=== PATIENT | male | born 1965 | race Caucasian/White ===

== ENCOUNTER 2017-01-30 06:24 | Day surgery (SDC) | payer OTHER ==
[2017-01-30] MEDS ORDERED: Lactated Ringers 1,000 ML IV SCH (07:00)
[2017-01-30] MEDS ORDERED: fentaNYL 100 MCG/2 ML SDV ONE (07:13)
[2017-01-30] MEDS ORDERED: Midazolam 1 MG/ML 2 ML SDV ONE (07:13)
[2017-01-30] MEDS ORDERED: Propofol 200 MG/20 ML SDV ONE (07:13)
[2017-01-30 09:05] VITALS: BP 124/76
--- NOTE | 2017-01-31 07:28 | OR ---
DATE OF PROCEDURE: 01/30/2017 PREOPERATIVE DIAGNOSES: History of diverticular disease. Strong family history of colon cancer--mother of colon cancer. POSTOPERATIVE DIAGNOSES: History of diverticular disease. Strong family history of colon cancer--mother of colon cancer. Unremarkable colonoscopy. PROCEDURE: Colonoscopy to the cecum. ANESTHESIA: IV anesthesia with monitored anesthesia care. INDICATION: This 51-year-old white male is referred for a colonoscopy. He has a history of diverticular disease, having suffered a perforation with left colostomy and Gustavo pouch. This was subsequently taken down. Later, he developed additional diverticular disease and underwent a further left-sided resection. His last colonoscopic exam was done five years ago. His mother of colon cancer. I counseled him for the procedure including risks and alternatives, and gave his informed consent to proceed. DESCRIPTION OF PROCEDURE: The patient was placed in the left lateral decubitus position. IV anesthesia was administered by the Anesthesia Service. Time-out was held. A rectal exam was performed, which was unremarkable. The flexible video Olympus colonoscope was introduced through his anus, up his rectum, and out his colon all the way to the cecum. En route, the anastomosis looked fine and was widely patent. Once the cecum was reached, the scope was slowly withdrawn examining the mucosa throughout. No mucosal abnormalities were noted. The scope was retroflexed in the rectum with the distal rectum appearing unremarkable. The scope was straightened and removed. He tolerated the procedure well. Parker Mortensen MD /[id number] [email or web address]
== END 2017-01-30 09:06 | disposition home or self-care (01) ==
LOC: JP.SDS 06:24
PROVIDERS: ATTEND Surgery
DX: K57.90 Diverticulosis of intestine, part unspecified, without perforation or abscess without bleeding (principal); Z80.0 Family history of malignant neoplasm of digestive organs; Z93.3 Colostomy status; Z91.048 Other nonmedicinal substance allergy status
CPT/HCPCS: 45378; J2250; J2704; J3010; J7120

== ENCOUNTER 2017-09-29 15:55 | Emergency (ER) | payer OTHER ==
[2017-09-29] MEDS ORDERED: Sodium Chloride 0.9% 10 ML Syringe FLUSH PRN (16:30)
[2017-09-29] MEDS ORDERED: Ketorolac 30 MG/ML SDV IVPUSH ONE (16:30)
--- NOTE | 2017-09-29 17:00 | EDM.PDOC ---
ED HPI GENERAL MEDICAL PROBLEM - General Chief Complaint: Fever Stated Complaint: SHIVERS/HOT FLASHES Time Seen by Provider: 09/29/17 16:20 Source of Information: Reports: Patient, Family History Limitations: Reports: No Limitations - History of Present Illness INITIAL COMMENTS - FREE TEXT/NARRATIVE: 52-year-old male who was had a cough for the past few weeks was at a local theater when he suddenly spiked a fever, developed rigors and shaking chills and a headache. His cough seems to be somewhat worse. No nausea or vomiting. Denies chest pain. Onset: Sudden Severity: Moderate Associated Symptoms: Reports: Cough, Fever/Chills, Headaches, Malaise. Denies: Confusion Generalized Pain Score (Numeric/FACES): 8 - Related Data Allergies Allergy/AdvReac Type Severity Reaction Status Date / Time cat dander Allergy Hives Verified 09/29/17 16:14 pollen extracts Allergy Cannot Verified 09/29/17 16:14 Remember Home Meds: Home Meds *Saw [place] 1,200 mg PO DAILY 02/09/16 [History] Aspirin [Ecotrin] 325 mg PO DAILY 02/09/16 [History] Cholecalciferol (Vitamin D3) [Vitamin D3] 1,000 units PO DAILY 02/09/16 [History ] L.acidoph,Paracasei, B.lactis [Probiotic] 1 each PO DAILY 02/09/16 [History] Multivitamin/Iron/Folic Acid [Centrum Complete Multivit] 1 tab PO DAILY [History] Past Medical History HEENT History: Reports: Allergic Rhinitis, Impaired Vision Other HEENT History: glasses Cardiovascular History: Reports: Afib Other Cardiovascular History: ablation Respiratory History: Reports: Sleep Apnea Gastrointestinal History: Reports: Bowel Obstruction, Diverticulosis, Other ( See Below) Other Gastrointestinal History: ruptured colon Genitourinary History: Reports: Renal Calculus Musculoskeletal History: Reports: Back Pain, Chronic, Fracture Neurological History: Reports: None Psychiatric History: Reports: None Endocrine/Metabolic History: Reports: Obesity/BMI 30+ Hematologic History: Reports: None Oncologic (Cancer) History: Reports: None Dermatologic History: Reports: None - Infectious Disease History Infectious Disease History: Reports: Mumps - Past Surgical History Cardiovascular Surgical History: Reports: Other (See Below) Other Cardiovascular Surgeries/Procedures: ablation GI Surgical History: Reports: Colonoscopy Other GI Surgeries/Procedures: colectomy Endocrine Surgical History: Reports: None Neurological Surgical History: Reports: C-Spine, Lumbar Spine Dermatological Surgical History: Reports: None Social & Family History - Family History Family Medical History: Noncontributory Cardiac: Reports: CAD Respiratory: Reports: None Oncologic: Reports: Colon, Lymphoma - Tobacco Use Smoking Status *Q: Never Smoker Years of Tobacco use: 11 Packs/Tins Daily: 0 Used Tobacco, but Quit: Yes Month Tobacco Last Used: 0 Second Hand Smoke Exposure: No - Caffeine Use Caffeine Use: Reports: Coffee - Alcohol Use Days Per Week of Alcohol Use: 1 Number of Drinks Per Day: 0 Total Drinks Per Week: 0 - Recreational Drug Use Recreational Drug Use: No ED ROS GENERAL - Review of Systems Review Of Systems: See Below Constitutional: Reports: Fever, Chills, Malaise HEENT: Denies: Throat Pain Respiratory: Reports: Cough. Denies: Shortness of Breath Cardiovascular: Denies: Chest Pain GI/Abdominal: Denies: Abdominal Pain, Nausea, Vomiting : Reports: No Symptoms Musculoskeletal: Reports: Muscle Pain (Aching all over) Skin: Denies: Rash Neurological: Reports: Headache. Denies: Confusion, Dizziness ED EXAM, GENERAL - Physical Exam Exam: See Below Exam Limited By: No Limitations General Appearance: Alert, Mild Distress (Patient is very uncomfortable with shaking rigors and fever) Respiratory/Chest: Wheezing (A few scattered expiratory wheezes are heard) Cardiovascular: Regular Rate, Rhythm GI/Abdominal: Non-Tender Neurological: Alert, Oriented Psychiatric: Anxious Skin Exam: Warm, Dry Course - Vital Signs Last Recorded V/S: Last Vital Signs Temp 101.1 F H 09/29/17 17:56 Pulse 97 09/29/17 17:56 Resp 18 09/29/17 17:56 BP 156/84 H 09/29/17 17:56 Pulse Ox 95 09/29/17 17:56 - Orders/Labs/Meds Orders: Active Orders 24 hr Category Date Time Status Chest 2V [CR] Routine Exams 09/29/17 17:10 Taken CULTURE BLOOD [BC] Urgent Lab 09/29/17 17:15 Received Blood Culture x2 Reflex Set [OM.PC] Urgent Oth 09/29/17 17:09 Ordered Saline Lock Insert [OM.PC] Routine Oth 09/29/17 16:30 Ordered Labs: Laboratory Tests 09/29/17 09/29/17 Range/Units 17:15 17:15 WBC 7.8 (4.5-11.0) K/uL RBC 4.53 (4.30-5.90) M/uL Hgb 13.4 (12.0-15.0) g/dL Hct 40.2 (40.0-54.0) % MCV 89 (80-98) fL MCH 30 (27-31) pg MCHC 33 (32-36) % Plt Count 208 (150-400) K/uL Neut % (Auto) 78 H (36-66) % Lymph % (Auto) 6 L (24-44) % [place] % (Auto) 13 H (2-6) % Eos % (Auto) 3 (2-4) % Baso % (Auto) 0 (0-1) % Sodium 142 (140-148) mmol/L Potassium 4.0 (3.6-5.2) mmol/L Chloride 105 (100-108) mmol/L Carbon Dioxide 26 (21-32) mmol/L Anion Gap 11.0 (5.0-14.0) mmol/L BUN 16 (7-18) mg/dL Creatinine 1.0 (0.8-1.3) mg/dL Est Cr Clr Drug Dosing 102.75 mL/min Estimated GFR (MDRD) > 60 (>60) Glucose 87 (74-106) mg/dL Calcium 8.7 (8.5-10.1) mg/dL Total Bilirubin 0.9 (0.2-1.0) mg/dL AST 39 H (15-37) U/L ALT 61 (12-78) U/L Alkaline Phosphatase 48 (46-116) U/L Total Protein 6.9 (6.4-8.2) g/dL Albumin 3.4 (3.4-5.0) g/dL Globulin 3.5 (2.3-3.5) g/dL Albumin/Globulin Ratio 1.0 L (1.2-2.2) Meds: Medications Discontinued Medications Generic Name Dose Route Start Last Admin Trade Name Freq PRN Reason Stop Dose Admin Hydromorphone HCl 1 mg 09/29/17 17:08 09/29/17 17:16 Dilaudid IVPUSH 09/29/17 17:09 1 mg ONETIME ONE Administration Ketorolac Tromethamine 30 mg 09/29/17 16:30 09/29/17 16:40 Toradol IVPUSH 09/29/17 16:31 30 mg ONETIME ONE Administration Sodium Chloride 10 ml 09/29/17 16:30 09/29/17 16:41 Saline Flush FLUSH 10 ml ASDIRECTED PRN Administration Keep Vein Open - Re-Assessments/Exams Free Text/Narrative Re-Assessment/Exam: 09/29/17 16:59 A saline lock was placed and the patient was given 30 mg of Toradol IV. Influenza antigens were obtained. 09/29/17 18:02 Influenza antigens came back negative. The 30 mg of Toradol did not help his headache much so he was given 1 mg of Dilaudid IV before being sent for his chest x-ray. A CBC blood cultures and his CMP were drawn. The patient returned from the chest x-ray feeling markedly better, his headache was gone. His eyes were still hurting but he was feeling much better. His chest x-ray was normal, CBC was normal, CMP was normal. I discussed with the patient and his that I was very surprised that his influenza was not positive. Departure - Departure Time of Disposition: 19:10 Disposition: Home, Self-Care 01 Condition: Good Clinical Impression: Viral bronchitis - Discharge Information Instructions: Acute Bronchitis Referrals: Chely Romo MD [Primary Care Provider] - Forms: ED Department Discharge Care Plan Goals: Take Tamiflu twice daily for 5 days as prescribed. A regular dose of ibuprofen or naproxen would be beneficial, and add stronger pain medication if needed. You will be contacted if any significant findings are found on the blood culture is the next 24-48 hours. He can always return sooner if worsening such as difficulty breathing or increased pain. - My Orders Last 24 Hours: My Active Orders 09/29/17 16:30 Saline Lock Insert [OM.PC] Routine 09/29/17 17:09 Blood Culture x2 Reflex Set [OM.PC] Urgent 09/29/17 17:10 Chest 2V [CR] Routine 09/29/17 17:15 CULTURE BLOOD [BC] Urgent - Assessment/Plan Last 24 Hours: My Active Orders 09/29/17 16:30 Saline Lock Insert [OM.PC] Routine 09/29/17 17:09 Blood Culture x2 Reflex Set [OM.PC] Urgent 09/29/17 17:10 Chest 2V [CR] Routine 09/29/17 17:15 CULTURE BLOOD [BC] Urgent
[2017-09-29] MEDS ORDERED: HYDROmorphone 1 MG/ML Syringe IVPUSH ONE (17:08)
[2017-09-29 17:58] VITALS: BP 156/84
--- NOTE | 2017-09-30 10:19 | CR ---
Chest 2V HISTORY: Dyspnea. COMPARISON: 02/09/2016. FINDINGS: Cardiac size and pulmonary vessels normal. There are no infiltrates or effusions. No pneumo thorax. Prior cervical fusion. IMPRESSION: No acute pulmonary disease.
== END 2017-09-29 19:11 | disposition home or self-care (01) ==
LOC: JP.ED 15:55
DX: J20.8 Acute bronchitis due to other specified organisms (principal); B97.89 Other viral agents as the cause of diseases classified elsewhere; Z79.899 Other long term (current) drug therapy; Z91.09 Other allergy status, other than to drugs and biological substances; Z87.891 Personal history of nicotine dependence
CPT/HCPCS: 36415; 71046; 80053; 85025; 87040; 87804; 96374; 96375; 99284; J1170; J1885; J7050

== ENCOUNTER 2018-01-17 10:11 | Emergency (ER) | payer OTHER ==
[2018-01-17 10:29] VITALS: BP 174/105
--- NOTE | 2018-01-17 11:21 | EDM.PDOC ---
ED HPI GENERAL MEDICAL PROBLEM - General Chief Complaint: Syncope Stated Complaint: HIGH BP / DIZZY Time Seen by Provider: 01/17/18 10:59 Source of Information: Reports: Patient, Provider, RN Notes Reviewed History Limitations: Reports: No Limitations - History of Present Illness INITIAL COMMENTS - FREE TEXT/NARRATIVE: 52-year-old gentleman presents emergency department today for complaint of new onset dizziness and elevated blood pressure, he was initially evaluated in urgent care a did receive a call from Ms Ozuna. States that he presented for evaluation of dizziness in the clinic prior to her ordering lab work he had a syncopal event while she was out of the room and he admits to this while he bent over and was fixing his pant leg. He felt his head shakeing he did not feel he hit the ground and he was aware of his surroundings the whole time lab staff worker is concerned that he was having a seizure, therefore he was sent to the emergency department for further evaluation. At this time his dizziness has resolved however he can reintroduce the dizziness with head turning, he describes his dizziness as room spinning - Related Data Allergies Allergy/AdvReac Type Severity Reaction Status Date / Time cat dander Allergy Hives Verified 09/29/17 16:14 pollen extracts Allergy Cannot Verified 09/29/17 16:14 Remember Home Meds: Home Meds *Saw [place] 1,200 mg PO DAILY 02/09/16 [History] Aspirin [Ecotrin] 325 mg PO DAILY 02/09/16 [History] Cholecalciferol (Vitamin D3) [Vitamin D3] 1,000 units PO DAILY 02/09/16 [History ] L.acidoph,Paracasei, B.lactis [Probiotic] 1 each PO DAILY 02/09/16 [History] Multivitamin/Iron/Folic Acid [Centrum Complete Multivit] 1 tab PO DAILY [History] Melatonin 01/17/18 [History] Past Medical History HEENT History: Reports: Allergic Rhinitis, Impaired Vision Other HEENT History: glasses Cardiovascular History: Reports: Arrhythmia (SVT) Other Cardiovascular History: ablation Respiratory History: Reports: Sleep Apnea Gastrointestinal History: Reports: Bowel Obstruction, Diverticulosis, Other ( See Below) Other Gastrointestinal History: ruptured colon Genitourinary History: Reports: Renal Calculus Musculoskeletal History: Reports: Back Pain, Chronic, Fracture Endocrine/Metabolic History: Reports: Obesity/BMI 30+ Dermatologic History: Reports: None - Infectious Disease History Infectious Disease History: Reports: Mumps - Past Surgical History Cardiovascular Surgical History: Reports: Other (See Below) Other Cardiovascular Surgeries/Procedures: ablation GI Surgical History: Reports: Colonoscopy Other GI Surgeries/Procedures: colectomy Endocrine Surgical History: Reports: None Neurological Surgical History: Reports: C-Spine, Lumbar Spine Dermatological Surgical History: Reports: None Social & Family History - Family History Family Medical History: Noncontributory Cardiac: Reports: CAD Respiratory: Reports: None Oncologic: Reports: Colon, Lymphoma - Tobacco Use Smoking Status *Q: Never Smoker Years of Tobacco use: 11 Packs/Tins Daily: 0 Used Tobacco, but Quit: Yes Month/Year Tobacco Last Used: 0 Second Hand Smoke Exposure: No - Caffeine Use Caffeine Use: Reports: Coffee - Alcohol Use Days Per Week of Alcohol Use: 1 Number of Drinks Per Day: 0 Total Drinks Per Week: 0 - Recreational Drug Use Recreational Drug Use: No ED ROS GENERAL - Review of Systems Review Of Systems: See Below Constitutional: Reports: No Symptoms HEENT: Reports: No Symptoms Respiratory: Reports: No Symptoms Cardiovascular: Reports: Syncope GI/Abdominal: Reports: Nausea : Reports: No Symptoms Musculoskeletal: Reports: No Symptoms Skin: Reports: No Symptoms Neurological: Reports: Dizziness ED EXAM, NEURO - Physical Exam Exam: See Below Text/Narrative:: General: Male, not in any distress, alert and oriented x3 HEENT: head is atraumatic normocephalic, eyes pupils equal round reactive to light, sclera clear no conjunctivitis appreciated. Ears tympanic membranes clear and cunningham landmarks and light reflex are present bilaterally canals are clear. Nose no septal deviation, nares are clear, no blood present. Mouth mucosa is moist and pink no erythema or exudate noted in soft palate, tongue is midline uvula is midline, dentition is intact. Neck: Supple no thyromegaly no tracheal deviation. Nodes: Cervical nodes subclavicular nodes nontender no palpable lymphadenopathy noted. Lungs: clear to auscultation bilaterally with symmetrical respirations, no adventitious noise appreciated. CV: Regular rate and rhythm S1 and S2 appreciated no murmurs rubs or gallops noted. Abdomen: Soft, nontender, no palpable masses or organomegaly appreciated, no distention no guarding bowel sounds are present, midline laparotomy scar is clean dry and intact. Neuro: Cranial nerves II through XII grossly intact, power is 5 out 5 in upper and lower extremities, no dysdiadochokinesis no difficulty with rapid alternating movements can do [id number] without difficulty Romberg is negative , has adequate gait no cerebellar dysfunction no focal neurologic deficit Hints exam does reveal dizziness induced with turning to the midline both sides no nystagmus noted, cover-uncover test is normal Skin: Warm and dry, intact Extremities: No lower extremity edema appreciated, pedal pulse is +2. Course - Vital Signs Last Recorded V/S: Last Vital Signs Temp 96.9 F 01/17/18 10:20 Pulse 72 01/17/18 10:27 Resp 16 01/17/18 10:27 BP 174/105 H 01/17/18 10:27 Pulse Ox 98 01/17/18 10:27 - Orders/Labs/Meds Orders: Active Orders 24 hr Category Date Time Status UA W/MICROSCOPIC [URIN] Urgent Lab 01/17/18 11:25 Ordered Labs: Laboratory Tests 01/17/18 01/17/18 01/17/18 Range/Units 11:25 11:25 11:25 WBC 6.8 (4.5-11.0) K/uL RBC 4.85 (4.30-5.90) M/uL Hgb 14.6 (12.0-15.0) g/dL Hct 43.0 (40.0-54.0) % MCV 89 (80-98) fL MCH 30 (27-31) pg MCHC 34 (32-36) % Plt Count 230 (150-400) K/uL Neut % (Auto) 58 (36-66) % Lymph % (Auto) 26 (24-44) % [place] % (Auto) 11 H (2-6) % Eos % (Auto) 5 H (2-4) % Baso % (Auto) 1 (0-1) % Sodium 142 (140-148) mmol/L Potassium 4.8 (3.6-5.2) mmol/L Chloride 104 (100-108) mmol/L Carbon Dioxide 29 (21-32) mmol/L Anion Gap 9.0 (5.0-14.0) mmol/L BUN 13 (7-18) mg/dL Creatinine 1.0 (0.8-1.3) mg/dL Est Cr Clr Drug Dosing 102.75 mL/min Estimated GFR (MDRD) > 60 (>60) Glucose 96 (74-106) mg/dL Calcium 8.9 (8.5-10.1) mg/dL Total Bilirubin 0.7 (0.2-1.0) mg/dL AST 51 H (15-37) U/L ALT 82 H (12-78) U/L Alkaline Phosphatase 55 (46-116) U/L Total Protein 7.7 (6.4-8.2) g/dL Albumin 3.7 (3.4-5.0) g/dL Globulin 4.0 H (2.3-3.5) g/dL Albumin/Globulin Ratio 0.9 L (1.2-2.2) Urine Color Yellow Urine Appearance Clear Urine pH 7.0 (4.5-8.0) Ur Specific [place] 1.010 (1.008-1.030) Urine Protein Negative (NEGATIVE) mg/dL Urine Glucose (UA) Normal (NEGATIVE) mg/dL Urine Ketones Negative (NEGATIVE) mg/dL Urine Occult Blood Negative (NEGATIVE) Urine Nitrite Negative (NEGAITVE) Urine Bilirubin Negative (NEGATIVE) Urine Urobilinogen Normal (NORMAL) mg/dL Ur Leukocyte Esterase Negative (NEGATIVE) Urine RBC Not seen (0-5) Urine WBC Not seen (0-5) Ur Epithelial Cells Not seen Amorphous Sediment Rare Urine Bacteria Not seen Urine Mucus Not seen Departure - Departure Time of Disposition: 12:20 Disposition: Home, Self-Care 01 Condition: Good Clinical Impression: Syncope Qualifiers: Syncope type: vasovagal syncope Qualified Code(s): R55 - Syncope and collapse - Discharge Information Referrals: PCP,None [Primary Care Provider] - Forms: ED Department Discharge Additional Instructions: Please followup with your primary care provider in 5-7 days if not better, please call return to the emergency department with worsening of symptoms. - My Orders Last 24 Hours: My Active Orders 01/17/18 11:25 UA W/MICROSCOPIC [URIN] Urgent - Assessment/Plan Last 24 Hours: My Active Orders 01/17/18 11:25 UA W/MICROSCOPIC [URIN] Urgent Assessment:: Assessment Acuity = acute Site and laterality = syncopal event Etiology = unclear etiology Manifestations = none Location of injury = Home Lab values = CBC, CMP shows mildly elevated liver enzymes, EKG done in the clinic shows no acute process CT scan of the head also no acute process Plan He remained asymptomatic while in the emergency department no treatment was provided his blood pressure did return to normal region systolics of 130 plan to discharge home follow-up primary care 3-5 days no improvement This note was dictated using [employer] voice recognition software please call with any questions on syntax or nicholas.
--- NOTE | 2018-01-17 11:42 | CT ---
Head wo Cont HISTORY: New-onset syncope and hypertension TECHNIQUE: Spiral noncontrast CT scan of the brain was obtained along with high-resolution bone windo w reconstructions. Auto dosage and iterative reconstruction techniques were employed. COMPARISON: 09/17/2012 FINDINGS: No acute intracranial hemorrhage or infarct is identified. There is no mass lesion, mass effect, midl ine shift, or ventricular abnormality. No abnormal extra-axial fluid collections are seen. Visualized paranasal sinuses and mastoid air cells are clear. Bone windows show no evidence for skull fracture. IMPRESSION: No hemorrhage, infarct, or other acute intracranial is abnormality identified. No significant interva l change compared with 09/17/2012. Findings were called to the Emergency Department at 1138 hours.
== END 2018-01-17 12:27 | disposition home or self-care (01) ==
LOC: JP.ED 10:11
DX: R55 Syncope and collapse (principal); Z91.048 Other nonmedicinal substance allergy status; Z79.899 Other long term (current) drug therapy; Z79.82 Long term (current) use of aspirin; Z87.891 Personal history of nicotine dependence
CPT/HCPCS: 36415; 70450; 70450-26; 80053; 81001; 85025; 99284-25

== ENCOUNTER 2018-03-29 10:18 | Emergency (ER) | payer OTHER ==
[2018-03-29 10:51] VITALS: BP 135/88
[2018-03-29] MEDS ORDERED: Ketorolac 30 MG/ML SDV IM ONE (10:57)
--- NOTE | 2018-03-29 11:02 | EDM.PDOC ---
ED HPI GENERAL MEDICAL PROBLEM - General Chief Complaint: Upper Extremity Injury/Pain Stated Complaint: HURT RT HAND & RT KNEE Time Seen by Provider: 03/29/18 10:41 Source of Information: Reports: Patient, Family, RN Notes Reviewed History Limitations: Reports: No Limitations - History of Present Illness INITIAL COMMENTS - FREE TEXT/NARRATIVE: 52-year-old gentleman presents to the emergency department today following a fall on outstretched hand, he was running a race earlier today he fell on his right hand he believes his wrist was close to the time of fall he is experiencing pain over digits 34 and 5, no wrist pain he also has an abrasion on his right knee but he was able to complete the race - Related Data Allergies Allergy/AdvReac Type Severity Reaction Status Date / Time cat dander Allergy Hives Verified 03/29/18 10:36 pollen extracts Allergy Cannot Verified 03/29/18 10:36 Remember Home Meds: Home Meds *Saw [place] 1,200 mg PO DAILY 02/09/16 [History] Aspirin [Ecotrin] 325 mg PO DAILY 02/09/16 [History] Cholecalciferol (Vitamin D3) [Vitamin D3] 1,000 units PO DAILY 02/09/16 [History ] Multivitamin/Iron/Folic Acid [Centrum Complete Multivit] 1 tab PO DAILY [History] Past Medical History HEENT History: Reports: Allergic Rhinitis, Impaired Vision Other HEENT History: glasses Cardiovascular History: Reports: Arrhythmia Other Cardiovascular History: ablation Respiratory History: Reports: Sleep Apnea Other Respiratory History: cpap Gastrointestinal History: Reports: Bowel Obstruction, Diverticulosis, Other ( See Below) Other Gastrointestinal History: ruptured colon Genitourinary History: Reports: Renal Calculus Musculoskeletal History: Reports: Back Pain, Chronic, Fracture Other Musculoskeletal History: right wrist fracture with repair 2016 Endocrine/Metabolic History: Reports: Obesity/BMI 30+ Dermatologic History: Reports: None - Infectious Disease History Infectious Disease History: Reports: Mumps - Past Surgical History Cardiovascular Surgical History: Reports: Other (See Below) Other Cardiovascular Surgeries/Procedures: ablation GI Surgical History: Reports: Colonoscopy Other GI Surgeries/Procedures: colectomy Male Surgical History: Reports: Renal Calculus Endocrine Surgical History: Reports: None Neurological Surgical History: Reports: C-Spine, Lumbar Spine Dermatological Surgical History: Reports: None Social & Family History - Family History Family Medical History: Noncontributory Cardiac: Reports: CAD Respiratory: Reports: None Oncologic: Reports: Colon, Lymphoma - Tobacco Use Smoking Status *Q: Former Smoker Years of Tobacco use: 10 Packs/Tins Daily: 0.5 Used Tobacco, but Quit: Yes Month/Year Tobacco Last Used: 2007 - Caffeine Use Caffeine Use: Reports: Coffee, Energy Drinks, Soda - Recreational Drug Use Recreational Drug Use: No Review of Systems - Review of Systems Review Of Systems: See Below Musculoskeletal: Reports: Hand Pain Skin: Reports: Wound ED EXAM, GENERAL - Physical Exam Exam: See Below Free Text/Narrative:: Examination right hand he has full range of motion the wrist without difficulty radial pulse is +2 he does have an abrasion over digits 4 and 5 metacarpal area he has some swelling over that area as well it is tender to the touch he has limited range of motion of all digits secondary to pain Exam Limited By: No Limitations General Appearance: Alert, WD/WN, No Apparent Distress Extremities: Other (Abrasion over left knee no pain with flexion extension is able to ambulate) Course - Vital Signs Last Recorded V/S: Last Vital Signs Temp 97.9 F 03/29/18 10:50 Pulse 84 03/29/18 10:50 Resp 16 03/29/18 10:50 BP 135/88 03/29/18 10:50 Pulse Ox 98 03/29/18 10:50 - Orders/Labs/Meds Orders: Active Orders 24 hr Category Date Time Status Hand Comp Min 3V Rt [CR] Stat Exams 03/29/18 10:57 Taken Bacitracin [Bacitracin Oint 1 GM] Med 03/29/18 11:30 Once 1 dose TOP ONETIME ONE Meds: Medications Discontinued Medications Generic Name Dose Route Start Last Admin Trade Name Freq PRN Reason Stop Dose Admin Ketorolac Tromethamine 30 mg 03/29/18 10:57 03/29/18 11:07 Toradol IM 03/29/18 10:58 30 mg ONETIME ONE Administration Departure - Departure Time of Disposition: 11:34 Disposition: Home, Self-Care 01 Condition: Good Clinical Impression: Contusion of right hand Qualifiers: Encounter type: initial encounter Qualified Code(s): S60.221A - Contusion of right hand, initial encounter - Discharge Information Referrals: Chely Romo MD [Primary Care Provider] - Forms: ED Department Discharge Additional Instructions: Use ibuprofen for baseline pain control, use hydrocodone for breakthrough pain please follow-up with your primary care provider on Saturday if no improvement we will contact you if radiology does find a fracture - My Orders Last 24 Hours: My Active Orders 03/29/18 10:57 Hand Comp Min 3V Rt [CR] Stat 03/29/18 11:30 Bacitracin [Bacitracin Oint 1 GM] 1 dose TOP ONETIME ONE - Assessment/Plan Last 24 Hours: My Active Orders 03/29/18 10:57 Hand Comp Min 3V Rt [CR] Stat 03/29/18 11:30 Bacitracin [Bacitracin Oint 1 GM] 1 dose TOP ONETIME ONE Plan: Assessment Acuity = acute Site and laterality = contusion right hand Etiology = secondary to a fall Manifestations = bruising, edema Location of injury = Home Lab values = hand x-ray I did review films myself I cannot appreciate any acute process, the official read from radiology is pending Plan Remy wrap as needed for comfort hydrocodone for pain control 5/325 one tab by mouth every 6 hours when necessary total #6 follow-up with primary care on Saturday if no improvement will contact if the radiology read differs This note was dictated using Conject voice recognition software please call with any questions on syntax or grammar.
[2018-03-29] MEDS ORDERED: Bacitracin Oint 1 GM U/D Packet TOP ONE (11:30)
--- NOTE | 2018-03-31 08:47 | CR ---
Hand Comp Min 3V Rt CLINICAL HISTORY: Pain, fall FINDINGS: There is no acute fracture or dislocation of the hand. There has been the previous fracture and fixation of the fifth metacarpal. There is a small ossification of the base of the fourth proxim al phalanx. This may be related to old injury. Acute fracture is unlikely. Impression: Previous fifth metacarpal fracture with fixation Small irregular ossific density off the base of the fourth proximal phalanx. This may be related to o ld injury. Clinical correlation is necessary.
== END 2018-03-29 11:45 | disposition home or self-care (01) ==
LOC: JP.ED 10:18
DX: S60.221A Contusion of right hand, initial encounter (principal); S80.212A Abrasion, left knee, initial encounter; E66.9 Obesity, unspecified; W19.XXXA Unspecified fall, initial encounter; Y93.02 Activity, running; Z79.82 Long term (current) use of aspirin; Z91.048 Other nonmedicinal substance allergy status; Z87.891 Personal history of nicotine dependence
CPT/HCPCS: 73130; 96372; 99283; 99284; J1885

== ENCOUNTER 2021-09-24 13:15 | Emergency (ER) | payer OTHER ==
--- NOTE | 2021-09-24 13:25 | EDM.PDOC ---
ED HPI GENERAL MEDICAL PROBLEM - General Chief Complaint: Cardiovascular Problem Stated Complaint: CHEST PAIN, SOB Time Seen by Provider: 09/24/21 13:24 Source of Information: Reports: Patient, Old Records History Limitations: Reports: No Limitations - History of Present Illness INITIAL COMMENTS - FREE TEXT/NARRATIVE: 56 yo male with known HTN and a FHx of CAD presents with central chest pain that he has been having on and off for a couple weeks, but which returned about 10 am today when he was doing housework and has not gone away. He feels mild SOB. No radiation or nausea or diaphoresis. He has tried amlopine and later losartan and more recently metoprolol succinate for his HTN. His older brother has CAD. He was on ASA in the past, but not recently. Onset: Today, Sudden Onset Date: 09/24/21 Onset Time: 10:00 Duration: Hour(s):, Constant Location: Reports: Chest Quality: Reports: Pressure Severity: Mild Improves with: Reports: None Worsens with: Reports: Other (? light exertion) Context: Reports: Other (See HPI) Associated Symptoms: Reports: Chest Pain, Shortness of Breath (mild). Denies: Cough, Diaphoresis, Nausea/Vomiting Treatments ALMOND SORTER: Reports: Other (see below) (none) Chest Pain Score (Numeric/FACES): 3 - Related Data Allergies Allergy/AdvReac Type Severity Reaction Status Date / Time cat dander Allergy Hives Verified 09/24/21 13:31 pollen extracts Allergy Other Verified 09/24/21 13:31 Home Meds: Home Meds Multivitamin/Iron/Folic Acid [Centrum Complete Multivit] 1 tab PO DAILY 07/20/16 [History] Ibuprofen 400 mg PO ASDIRECTED PRN 05/28/19 [History] Cholecalciferol (Vitamin D3) [Vitamin D3] 2,000 unit PO DAILY 06/01/19 [History] Metoprolol Succinate 25 mg PO DAILY 09/24/21 [History] Metoprolol Succinate 100 mg PO DAILY #30 tab.er.24h 09/24/21 [Rx] metFORMIN HCl [Metformin HCl ER] 100 mg PO BID #120 tab.er.24h 09/24/21 [Rx] Past Medical History HEENT History: Reports: Allergic Rhinitis Cardiovascular History: Reports: Afib, Arrhythmia, High Cholesterol Other Cardiovascular History: ABLATION, CARDIAC DYSRHYTHMIA, SVT Respiratory History: Reports: Sleep Apnea Other Respiratory History: cpap Gastrointestinal History: Reports: Bowel Obstruction, Diverticulosis, Other (See Below) Other Gastrointestinal History: ruptured colon, DIVERTICULAR DISEASE OF THE LARGE INTESTINE Genitourinary History: Reports: Renal Calculus Musculoskeletal History: Reports: Back Pain, Chronic, Fracture, Gout Other Musculoskeletal History: right wrist fracture with repair 2016, CERVICAL DISC DIPLACEMENT, RADICULOPATHY Neurological History: Reports: None Psychiatric History: Reports: None Endocrine/Metabolic History: Reports: Obesity/BMI 30+ Hematologic History: Reports: None Oncologic (Cancer) History: Reports: None Dermatologic History: Reports: None - Infectious Disease History Infectious Disease History: Reports: Mumps - Past Surgical History HEENT Surgical History: Reports: None Cardiovascular Surgical History: Reports: Other (See Below) Other Cardiovascular Surgeries/Procedures: ablation Respiratory Surgical History: Reports: None GI Surgical History: Reports: Colon, Colonoscopy Other GI Surgeries/Procedures: colectomy Male Surgical History: Reports: Renal Calculus Endocrine Surgical History: Reports: None Neurological Surgical History: Reports: C-Spine, Lumbar Spine, Spinal Fusion Other Neurological Surgeries/Procedures: Cage between L-4 & L-5 on 02/06/2016 Musculoskeletal Surgical History: Reports: Shoulder Surgery, Other (See Below) Other Musculoskeletal Surgeries/Procedures:: discectomy with fusion NECK SURGERY IN 2014 AND BACK SURGERY 01/2016, right hand surgery with plate Dermatological Surgical History: Reports: None Social & Family History - Family History Family Medical History: No Pertinent Family History Cardiac: Reports: CAD Respiratory: Reports: None Oncologic: Reports: Colon, Lymphoma - Caffeine Use Caffeine Use: Reports: Coffee ED ROS GENERAL - Review of Systems Review Of Systems: See Below Constitutional: Reports: No Symptoms HEENT: Reports: No Symptoms Respiratory: Reports: Shortness of Breath Cardiovascular: Reports: Chest Pain Endocrine: Reports: No Symptoms GI/Abdominal: Reports: No Symptoms. Denies: Nausea : Reports: No Symptoms Musculoskeletal: Reports: No Symptoms Skin: Reports: No Symptoms Neurological: Reports: No Symptoms ED EXAM, GENERAL - Physical Exam Exam: See Below Exam Limited By: No Limitations General Appearance: Alert, WD/WN, No Apparent Distress Eye Exam: Bilateral Eye: Normal Inspection Ears: Normal External Exam, Normal Canal, Hearing Grossly Normal Ear Exam: Bilateral Ear: Auricle Normal, Canal Normal Nose: Normal Inspection, No Blood Throat/Mouth: Normal Inspection, Normal Lips, Normal Oropharynx, Normal Voice, No Airway Compromise Head: Atraumatic, Normocephalic Neck: Normal Inspection Respiratory/Chest: No Respiratory Distress, Lungs Clear, Normal Breath Sounds, No Accessory Muscle Use, Chest Non-Tender Cardiovascular: Regular Rate, Rhythm, No Edema GI/Abdominal: Normal Bowel Sounds, Soft, Non-Tender, No Distention Back Exam: Normal Inspection. No: CVA Tenderness (R), CVA Tenderness (L) Extremities: Normal Inspection, Normal Range of Motion, Non-Tender, No Pedal Edema Neurological: Alert, Oriented, CN II-XII Intact, Normal Cognition, No Motor/Sensory Deficits Psychiatric: Normal Affect, Normal Mood Skin Exam: Warm, Dry, Intact, Normal Color, No Rash #1 Interpretation EKG Date: 09/24/21 Time: 13:25 Rhythm: NSR Rate (Beats/Min): 82 [place]: LAD-Left [place] Deviation P-Wave: Present QRS: Normal ST-T: Normal QT: Normal Comparison: NA - No Prior EKG Course - Vital Signs Last Recorded V/S: Last Vital Signs Temp 37.1 C 09/24/21 13:27 Pulse 75 09/24/21 15:12 Resp 26 H 09/24/21 15:12 BP 138/86 09/24/21 15:12 Pulse Ox 94 L 09/24/21 15:12 - Orders/Labs/Meds Orders: Active Orders 24 hr Category Date Time Status Cardiac Monitoring [RC] .As Directed Care 09/24/21 13:38 Active Chest 2V [CR] Stat Exams 09/24/21 14:30 Taken UA W/MICROSCOPIC [URIN] Stat Lab 09/24/21 15:10 Ordered Nitroglycerin [Nitrostat] Med 09/24/21 13:53 Active 0.4 mg SL Q5M PRN Sodium Chloride 0.9% [Saline Flush] Med 09/24/21 13:38 Active 10 ml FLUSH ASDIRECTED PRN Saline Lock Insert [OM.PC] Routine Oth 09/24/21 13:38 Ordered EKG 12 Lead [EK] Routine Ther 09/24/21 13:22 Ordered Medication Orders Nitroglycerin (Nitroglycerin 0.4 Mg Tab.Sl) 0.4 mg SL Q5M PRN PRN Reason: Chest Pain Last Admin: 09/24/21 13:58 Dose: 0.4 mg Documented by: PREILOR Sodium Chloride (Sodium Chloride 0.9% 10 Ml Syringe) 10 ml FLUSH ASDIRECTED PRN PRN Reason: Keep Vein Open Last Admin: 09/24/21 13:51 Dose: 10 ml Documented by: PREILOR Labs: Laboratory Tests 09/24/21 09/24/21 09/24/21 Range/Units 13:50 13:52 13:52 WBC 7.5 (4.5-11.0) K/uL RBC 4.62 (4.30-5.90) M/uL Hgb 14.0 (12.0-15.0) g/dL Hct 41.6 (40.0-54.0) % MCV 90 (80-98) fL MCH 30 (27-31) pg MCHC 34 (32-36) % Plt Count 226 (150-400) K/uL D-Dimer, Quantitative 232.50 (0.0-500.0) ng/mL Sodium 141 (140-148) mmol/L Potassium 4.0 (3.6-5.2) mmol/L Chloride 104 (100-108) mmol/L Carbon Dioxide 27 (21-32) mmol/L Anion Gap 10.5 (5.0-14.0) mmol/L BUN 19 H (7-18) mg/dL Creatinine 1.1 (0.8-1.3) mg/dL Est Cr Clr Drug Dosing 89.26 mL/min Estimated GFR (MDRD) > 60 (>60) Glucose 163 H (74-106) mg/dL Calcium 8.4 L (8.5-10.1) mg/dL Troponin I High Sens 9.1 (<=60.3) pg/mL Meds: Medications Generic Name Dose Route Start Last Admin Trade Name Freq PRN Reason Stop Dose Admin Nitroglycerin 0.4 mg 09/24/21 13:53 09/24/21 13:58 Nitroglycerin 0.4 Mg Tab.Sl SL 0.4 mg Q5M PRN Administration Chest Pain Sodium Chloride 10 ml 09/24/21 13:38 09/24/21 13:51 Sodium Chloride 0.9% 10 Ml Syringe FLUSH 10 ml ASDIRECTED PRN Administration Keep Vein Open Discontinued Medications Generic Name Dose Route Start Last Admin Trade Name Freq PRN Reason Stop Dose Admin Aspirin 324 mg 09/24/21 13:37 09/24/21 13:42 Aspirin 81 Mg Tab.Chew PO 09/24/21 13:38 324 mg ONETIME ONE Administration Lorazepam 0.5 mg 09/24/21 13:37 09/24/21 13:42 Lorazepam 0.5 Mg Tab PO 09/24/21 13:38 0.5 mg ONETIME ONE Administration Lorazepam 1 mg 09/24/21 14:52 09/24/21 14:57 Lorazepam 1 Mg Tab PO 09/24/21 14:53 1 mg ONETIME ONE Administration Metoprolol Tartrate 50 mg 09/24/21 13:36 09/24/21 13:42 Metoprolol Tartrate 50 Mg Tab PO 09/24/21 13:37 50 mg ONETIME ONE Administration - Radiology Interpretation Free Text/Narrative:: CXR-neg - Re-Assessments/Exams Free Text/Narrative Re-Assessment/Exam: 09/24/21 14:08 had a slight reduction in his CP with NTG, but got a little tachy and felt light-headed, BP 149 at this time Free Text/Narrative Re-Assessment/Exam: 09/24/21 14:53 seems more anxious, Ativan 0.5 mg did little, will give 1.0 mg Departure - Departure Time of Disposition: 15:20 Disposition: Home, Self-Care 01 Condition: Fair Clinical Impression: Nonspecific chest pain, Elevated blood sugar HTN (hypertension) Qualifiers: Hypertension type: unspecified Qualified Code(s): I10 - Essential (primary) hypertension Prescriptions: metFORMIN HCl [Metformin HCl ER] 100 mg PO BID #120 tab.er.24h Metoprolol Succinate 100 mg PO DAILY #30 tab.er.24h Instructions: Nonspecific Chest Pain, Adult, [id number] Referrals: Chely Romo MD [Primary Care Provider] - Forms: ED Department Discharge Additional Instructions: Increase your metoprolol succinate to 100 mg daily at bedtime, next dose at bedtime tonight. Take a baby aspirin daily with a meal. Start metformin today and gradually increase your dose over a few days to 1000 mg twice a day. Ask your doctor if you are due for a cholesterol check. Ask your doctor for a cardiology referral and share today's test results with him. Return here as needed. Sepsis Event Note (ED) - Focused Exam Vital Signs: Vital Signs Temp Pulse Pulse Resp BP BP Pulse Ox 09/24/21 15:12 75 26 H 138/86 94 L 09/24/21 14:45 83 131/83 09/24/21 13:58 169/93 H 09/24/21 13:42 86 166/88 H 09/24/21 13:27 37.1 C 82 16 157/88 H 97 - My Orders Last 24 Hours: My Active Orders 09/24/21 13:22 EKG 12 Lead [EK] Routine 09/24/21 13:38 Cardiac Monitoring [RC] .As Directed Sodium Chloride 0.9% [Saline Flush] 10 ml FLUSH ASDIRECTED PRN Saline Lock Insert [OM.PC] Routine 09/24/21 13:53 Nitroglycerin [Nitrostat] 0.4 mg SL Q5M PRN 09/24/21 14:30 Chest 2V [CR] Stat 09/24/21 15:10 UA W/MICROSCOPIC [URIN] Stat - Assessment/Plan Last 24 Hours: My Active Orders 09/24/21 13:22 EKG 12 Lead [EK] Routine 09/24/21 13:38 Cardiac Monitoring [RC] .As Directed Sodium Chloride 0.9% [Saline Flush] 10 ml FLUSH ASDIRECTED PRN Saline Lock Insert [OM.PC] Routine 09/24/21 13:53 Nitroglycerin [Nitrostat] 0.4 mg SL Q5M PRN 09/24/21 14:30 Chest 2V [CR] Stat 09/24/21 15:10 UA W/MICROSCOPIC [URIN] Stat
[2021-09-24] MEDS ORDERED: Metoprolol Tartrate 50 MG Tab PO ONE (13:36)
[2021-09-24] MEDS ORDERED: Aspirin 81 MG Tab.Chew PO ONE (13:37)
[2021-09-24] MEDS ORDERED: LORazepam 0.5 MG Tab PO ONE (13:37)
[2021-09-24] MEDS ORDERED: Sodium Chloride 0.9% 10 ML Syringe FLUSH PRN (13:38)
[2021-09-24] MEDS ORDERED: Nitroglycerin 0.4 MG Tab.SL SL PRN (13:53)
[2021-09-24] MEDS ORDERED: LORazepam 1 MG Tab PO ONE (14:52)
[2021-09-24 15:13] VITALS: BP 138/86; PULSE 75
--- NOTE | 2021-09-25 09:34 | CR ---
CHEST: 2 view CLINICAL HISTORY:Chest pain COMPARISON:2018 FINDINGS: The heart size, pulmonary vascularity and hilar structures are normal. No infiltrate effusion or pneumothorax is seen. IMPRESSION: No acute cardiopulmonary process.
== END 2021-09-24 15:39 | disposition home or self-care (01) ==
LOC: JP.ED 13:15
DX: R07.89 Other chest pain (principal); I10 Essential (primary) hypertension; R73.9 Hyperglycemia, unspecified; Z79.899 Other long term (current) drug therapy; Z79.84 Long term (current) use of oral hypoglycemic drugs
CPT/HCPCS: 36415; 71046; 80048; 81001; 84484; 85027; 85379; 93005; 99285; A9270

== ENCOUNTER 2021-10-25 23:01 | Emergency (ER) | payer OTHER ==
[2021-10-25] MEDS ORDERED: Ondansetron 4 MG Tab.DIS PO ONE (23:13)
[2021-10-25 23:34] VITALS: PULSE 96
[2021-10-25] MEDS ORDERED: Sodium Chloride 0.9% 10 ML Syringe FLUSH PRN (23:41)
[2021-10-25] MEDS ORDERED: Ondansetron 4 MG/2 ML SDV IVPUSH ONE (23:41)
[2021-10-25] MEDS ORDERED: fentaNYL 100 MCG/2 ML SDV IVPUSH ONE (23:42)
[2021-10-26 00:11] LABS: CORONAVIRUS COVID-19 NAA NEGATIVE (NEGATIVE)
[2021-10-26] MEDS ORDERED: Sodium Chloride 0.9% 500 ML IV ONE (00:29)
[2021-10-26 00:50] VITALS: BP 133/77
== END 2021-10-26 01:56 | disposition home or self-care (01) ==
LOC: JP.ED 23:01
DX: K52.9 Noninfective gastroenteritis and colitis, unspecified (principal); I48.91 Unspecified atrial fibrillation; E78.00 Pure hypercholesterolemia, unspecified; I10 Essential (primary) hypertension; E66.9 Obesity, unspecified; Z91.09 Other allergy status, other than to drugs and biological substances; Z20.822 Contact with and (suspected) exposure to COVID-19; Z68.35 Body mass index [BMI] 35.0-35.9, adult
CPT/HCPCS: 0241U; 36415; 74176; 80053; 83690; 85025; 86140; 87046; 87899; 96374; 96375; 99284; J2405; J3010; J7040

== ENCOUNTER 2022-12-27 09:12 | Emergency (ER) | payer OTHER ==
[2022-12-27 09:25] VITALS: BP 140/84; PULSE 75
== END 2022-12-27 10:00 | disposition home or self-care (01) ==
LOC: JP.ED 09:12
DX: M70.22 Olecranon bursitis, left elbow (principal); I48.91 Unspecified atrial fibrillation; I10 Essential (primary) hypertension; M10.9 Gout, unspecified; E66.9 Obesity, unspecified; Z68.34 Body mass index [BMI] 34.0-34.9, adult; Z87.891 Personal history of nicotine dependence; Z91.048 Other nonmedicinal substance allergy status; Z79.899 Other long term (current) drug therapy
CPT/HCPCS: 73080-26-LT; 73080-LT; 99283

== ENCOUNTER 2023-03-02 12:41 | Emergency (ER) | payer OTHER ==
[2023-03-02 15:02] LABS: BASOPHILS ABSOLUTE AUTO 0.04 K/uL (0.00-0.10); BASOPHILS PERCENT AUTO 0.6 % (0.1-1.3); EOSINOPHILS ABSOLUTE AUTO 0.22 K/uL (0.00-0.40); EOSINOPHILS PERCENT AUTO 3.1 % (0.0-5.4); HEMATOCRIT 39.2 % (38.4-49.7); HEMOGLOBIN 13.3 g/dL (12.9-16.9); IMMATURE GRAN ABSOLUTE AUTO 0.03 K/uL (0.00-0.23); IMMATURE GRAN PERCENT AUTO 0.4 % (0.0-0.7); LYMPHOCYTES PERCENT AUTO 22.2 % (11.4-47.7); MEAN CORPUSCULAR HEMOGLOBIN 29.4 pg (31.6-35.5); MEAN CORPUSCULAR HGB CONC 33.9 g/dL (31.6-35.5); MEAN CORPUSCULAR VOLUME 86.5 fL (81.4-99.0); MONOCYTES ABSOLUTE AUTO 1.11 K/uL (0.20-0.90); MONOCYTES PERCENT AUTO 15.4 % (3.3-12.6); NEUTROPHILS PERCENT AUTO 58.3 % (40.0-78.1); PLATELET COUNT,PLT 169 K/uL (130-375); RED BLOOD CELL COUNT 4.53 M/uL (4.14-5.76); WHITE BLOOD CELL COUNT,WBC 7.2 K/uL (3.2-11.0)
[2023-03-02 15:22] LABS: A/G RATIO 0.6 (1.2-2.2); ALANINE AMINOTRANSFERASE,ALT 67 U/L (12-78); ALBUMIN 3.1 g/dL (3.4-5.0); ALKALINE PHOSPHATASE 53 U/L (46-116); ASPARTATE AMNIOTRANSFERASE,AST 54 U/L (15-37); BILIRUBIN TOTAL 1.6 mg/dL (0.2-1.0); BLOOD UREA NITROGEN,BUN 15 mg/dL (7-18); CALCIUM 9.1 mg/dL (8.5-10.1); CARBON DIOXIDE,CO2 31 mmol/L (21-32); CHLORIDE,CL 98 mmol/L (100-108); CREATININE 1.1 mg/dL (0.8-1.3); EST CRCL DRUG DOSING (CG) 90.69 mL/min; ESTIMATED GFR 79 mL/min (>60); GLUCOSE RANDOM 123 mg/dL (74-106); POTASSIUM,K 3.2 mmol/L (3.6-5.2); SODIUM,NA 138 mmol/L (140-148)
[2023-03-02 15:24] LABS: ANION GAP 12.2 mmol/L (5.0-14.0)
[2023-03-02 15:40] LABS: LYME AB IgG Negative (Negative)
[2023-03-02 15:41] LABS: LYME AB IgM Negative (Negative)
[2023-03-02] MEDS ORDERED: Ketorolac 30 MG/ML SDV IM ONE (16:17)
[2023-03-02 16:21] VITALS: BP 138/82; PULSE 83
== END 2023-03-02 17:11 | disposition home or self-care (01) ==
LOC: JP.ED 12:41
DX: J01.90 Acute sinusitis, unspecified (principal); I10 Essential (primary) hypertension; I48.91 Unspecified atrial fibrillation; M10.9 Gout, unspecified; E66.9 Obesity, unspecified; Z68.33 Body mass index [BMI] 33.0-33.9, adult; Z79.899 Other long term (current) drug therapy; Z20.822 Contact with and (suspected) exposure to COVID-19; Z91.09 Other allergy status, other than to drugs and biological substances
CPT/HCPCS: 36415; 71046; 80053; 85025; 86612; 86618; 86635; 86666; 86753; 87385; 87449; 87635; 96372; 99284; J1885; U0002

== ENCOUNTER 2023-11-13 11:58 | Emergency (ER) | payer OTHER ==
[2023-11-13] MEDS: Ketorolac 15 MG/ML SDV IM ONE (12:44)
[2023-11-13 12:54] LABS: ESTIMATED GFR 88 mL/min (>60)
[2023-11-13 13:30] VITALS: BP 130/83; PULSE 73
[2023-11-13] MEDS: Acetaminophen/HYDROcodone 325-10 MG Tab PO ONE (13:30)
== END 2023-11-13 14:12 | disposition home or self-care (01) ==
LOC: JP.ED 11:58
DX: S22.42XA Multiple fractures of ribs, left side, initial encounter for closed fracture (principal); I10 Essential (primary) hypertension; E66.9 Obesity, unspecified; Z86.16 Personal history of COVID-19; Z91.048 Other nonmedicinal substance allergy status; Z79.899 Other long term (current) drug therapy; Z87.891 Personal history of nicotine dependence; W01.0XXA Fall on same level from slipping, tripping and stumbling without subsequent striking against object, initial encounter
CPT/HCPCS: 36415; 71250; 82565; 85018; 96372; 99284; A9270; J1885

== ENCOUNTER 2024-11-02 09:24 | Emergency (ER) | payer OTHER ==
[2024-11-02 09:39] VITALS: BP 159/82; PULSE 88
[2024-11-02 10:25] LABS: CORONAVIRUS COVID-19 NAA NEGATIVE (NEGATIVE); INFLUENZA A NAA NEGATIVE (NEGATIVE); INFLUENZA B NAA NEGATIVE (NEGATIVE); RESPIRATORY SYNCYTIAL VIR NAA NEGATIVE (NEGATIVE)
== END 2024-11-02 11:14 | disposition home or self-care (01) ==
LOC: JP.ED 09:24
DX: B34.9 Viral infection, unspecified (principal); E66.9 Obesity, unspecified; Z91.048 Other nonmedicinal substance allergy status; Z79.899 Other long term (current) drug therapy; Z86.16 Personal history of COVID-19; Z68.33 Body mass index [BMI] 33.0-33.9, adult
CPT/HCPCS: 0241U; 99283

== ENCOUNTER 2024-11-04 17:11 | Emergency (ER) | payer OTHER ==
[2024-11-04 18:44] LABS: BASOPHILS ABSOLUTE AUTO 0.03 K/uL (0.00-0.10); BASOPHILS PERCENT AUTO 0.5 % (0.1-1.3); EOSINOPHILS ABSOLUTE AUTO 0.24 K/uL (0.00-0.40); EOSINOPHILS PERCENT AUTO 4.4 % (0.0-5.4); HEMOGLOBIN 13.3 g/dL (12.9-16.9); IMMATURE GRAN PERCENT AUTO 0.2 % (0.0-0.7); LYMPHOCYTES ABSOLUTE AUTO 1.41 K/uL (0.8-3.3); LYMPHOCYTES PERCENT AUTO 25.6 % (11.4-47.7); MEAN CORPUSCULAR HEMOGLOBIN 31.1 pg (31.6-35.5); MEAN CORPUSCULAR HGB CONC 34.1 g/dL (31.6-35.5); MEAN CORPUSCULAR VOLUME 91.3 fL (81.4-99.0); MONOCYTES ABSOLUTE AUTO 0.99 K/uL (0.20-0.90); NEUTROPHILS ABSOLUTE AUTO 2.82 K/uL (1.0-7.6); NEUTROPHILS PERCENT AUTO 51.3 % (40.0-78.1); PLATELET COUNT,PLT 125 K/uL (130-375); RED BLOOD CELL COUNT 4.27 M/uL (4.14-5.76); WHITE BLOOD CELL COUNT,WBC 5.5 K/uL (3.2-11.0)
[2024-11-04 18:45] LABS: IMMATURE GRAN ABSOLUTE AUTO 0.01 K/uL (0.00-0.23)
[2024-11-04 19:00] LABS: C-REACTIVE PROTEIN 2.55 mg/dL (<0.50); CALCIUM 9.2 mg/dL (8.5-10.1); CREATININE 1.1 mg/dL (0.8-1.3); EST CRCL DRUG DOSING (CG) 88.55 mL/min; POTASSIUM,K 3.5 mmol/L (3.6-5.2)
[2024-11-04 19:02] LABS: ANION GAP 12.5 mmol/L (5.0-14.0)
[2024-11-04 19:17] VITALS: BP 130/79; PULSE 67
== END 2024-11-04 19:59 | disposition home or self-care (01) ==
LOC: JP.ED 17:11
DX: J40 Bronchitis, not specified as acute or chronic (principal); R04.2 Hemoptysis; I10 Essential (primary) hypertension; Z91.048 Other nonmedicinal substance allergy status; Z91.018 Allergy to other foods; Z79.899 Other long term (current) drug therapy; Z86.16 Personal history of COVID-19
CPT/HCPCS: 36415; 71045; 71045-26; 80048; 83605; 85025; 86140; 99283